=== PATIENT | male | born 1945 | race Caucasian/White ===

== ENCOUNTER → 2018-12-15 | Outpatient (REF) | payer MEDICARE ==
[~2018-12-15] MED LIST: ACTOPLUS M15 MG/500 OR; ADLT ASA LOW81 MG PO; ASA LOW DOSE81 MG OR; CRESTOR10 MG OR; FLUOXETINE20 MG PO; LISINOPRIL10 MG PO; LORTAB 7.57.5 MG PO; METFORMIN500 MG PO; SIMVASTATIN40 MG PO
== END | disposition home or self-care (01) ==
LOC: NUCMED 07:42
PROVIDERS: ATTEND Internal Medicine
DX: E04.1 Nontoxic single thyroid nodule (principal)
CPT/HCPCS: A9516

== ENCOUNTER 2022-01-21 19:01 | Observation (INO) | payer MEDICARE ==
[2022-01-21] VITALS (15 sets, daily range): BP systolic 123–158; BP diastolic 56–83
[~2022-01-21] VITALS: Ht 175.3 cm; Wt 87.0 kg
[2022-01-21 19:26] LABS: HEMATOCRIT 42.8 % (39.0-50.0); HEMOGLOBIN 14.2 g/dl (14.0-18.0); IMMATURE GRANULOCYTES 0.3 % (0.0-5.0); MEAN CELL VOLUME 96.6 fL CALC (80.0-100.0); MEAN CORPUSCULAR HGB 32.1 pG CALC (26.0-32.0); MEAN CORPUSCULAR HGB CONC 33.2 g/dL CAL (32.0-36.0); NEUT# 8.53 thou/uL (1.82-7.42); RED BLOOD COUNT 4.43 mill/uL (4.70-6.10); RED CELL DISTRI WIDTH 12.8 % (11.5-15.5)
[2022-01-21 19:38] LABS: ALBUMIN 3.9 g/dL (3.2-5.0); ALKALINE PHOSPHATASE 105 u/l (38-126); ANION GAP 13 (6-22 (CALC)); BUN 20 mg/dL (8-23); BUN/CREATININE RATIO 15 (12-20 (CALC)); CARBON DIOXIDE 27 mmol/l (22-30); CHLORIDE 106 mmol/l (95-108); CREATININE 1.4 mg/dL (0.7-1.3); GFR 49 ML/MIN (>=60 (CALC)); GFR FOR AFR.AMER. 59 ML/MIN (>=60 (CALC)); SGOT/AST 19 u/l (19-48); SODIUM 142 mmol/l (137-146); TOTAL PROTEIN 6.9 g/dL (6.3-8.2)
[2022-01-21 19:45] LABS: BILIRUBIN, TOTAL 0.2 mg/dL (0.0-1.4)
[2022-01-21 19:50] LABS: MYOGLOBIN 31 ng/mL (0 - 121)
[2022-01-21 22:33] LABS: URINE BILIRUBIN - DIPSTICK NEGATIVE (NEGATIVE); URINE BLOOD DIPSTICK TRACE-INTACT (NEGATIVE); URINE COLOR YELLOW; URINE GLUCOSE - DIPSTICK NEGATIVE (NEGATIVE); URINE KETONE NEGATIVE (NEGATIVE); URINE SPECIFIC GRAVITY 1.025; URINE UROBILINOGEN - DIPSTICK 0.2 E.U./dL (0.2)
[2022-01-21 22:38] LABS: URINE LEUK ESTERASE MODERATE (NEGATIVE); URINE NITRITE - DIPSTICK NEGATIVE (Negative)
[2022-01-21 22:39] LABS: URINE PROTEIN - DIPSTICK NEGATIVE (NEG-TRACE)
[2022-01-21 22:41] LABS: URINE WBC 50-100 WBC/hpf (0-5)
[2022-01-21 22:42] LABS: URINE EPITHELIAL CELLS MODERATE EPI/hpf (0-FEW)
[2022-01-21 22:43] LABS: URINE BACTERIA MODERATE hpf
[2022-01-22] VITALS (49 sets, daily range): BP systolic 69–152; BP diastolic 36–94
[2022-01-22 05:47] LABS: HEMOGLOBIN 13.4 g/dl (14.0-18.0); MEAN CELL VOLUME 97.2 fL CALC (80.0-100.0); MEAN CORPUSCULAR HGB 31.8 pG CALC (26.0-32.0); MEAN CORPUSCULAR HGB CONC 32.7 g/dL CAL (32.0-36.0); RED BLOOD COUNT 4.22 mill/uL (4.70-6.10); RED CELL DISTRI WIDTH 12.9 % (11.5-15.5)
[2022-01-22 06:04] LABS: ANION GAP 8 (6-22 (CALC)); BUN 18 mg/dL (8-23); BUN/CREATININE RATIO 20 (12-20 (CALC)); CARBON DIOXIDE 30 mmol/l (22-30); CHLORIDE 105 mmol/l (95-108); CREATININE 0.9 mg/dL (0.7-1.3); GFR > 60 ML/MIN (>=60 (CALC)); GFR FOR AFR.AMER. > 60 ML/MIN (>=60 (CALC)); MAGNESIUM 1.7 mg/dL (1.6-2.3); POTASSIUM 4.1 mmol/l (3.5-5.1); SODIUM 139 mmol/l (137-146)
[2022-01-23] VITALS (12 sets, daily range): BP systolic 122–158; BP diastolic 55–86
[2022-01-23 05:44] LABS: HEMATOCRIT 42.2 % (39.0-50.0); MEAN CELL VOLUME 95.3 fL CALC (80.0-100.0); MEAN CORPUSCULAR HGB 31.6 pG CALC (26.0-32.0); MEAN CORPUSCULAR HGB CONC 33.2 g/dL CAL (32.0-36.0); RED BLOOD COUNT 4.43 mill/uL (4.70-6.10); RED CELL DISTRI WIDTH 12.4 % (11.5-15.5)
[2022-01-23 05:55] LABS: ANION GAP 12 (6-22 (CALC)); BUN 19 mg/dL (8-23); BUN/CREATININE RATIO 26 (12-20 (CALC)); CARBON DIOXIDE 25 mmol/l (22-30); CHLORIDE 103 mmol/l (95-108); CREATININE 0.7 mg/dL (0.7-1.3); GFR > 60 ML/MIN (>=60 (CALC)); GFR FOR AFR.AMER. > 60 ML/MIN (>=60 (CALC)); MAGNESIUM 1.8 mg/dL (1.6-2.3); POTASSIUM 4.8 mmol/l (3.5-5.1); SODIUM 135 mmol/l (137-146)
[2022-01-23] MEDS ORDERED: ZITHROMAX250 MG PO (08:54)
[2022-01-23] MEDS ORDERED: PREDNISONE10 MG PO (08:54)
== END 2022-01-23 12:45 | disposition home or self-care (01) ==
LOC: ED 19:01 → ED-I 20:45 → ED 21:03 → ICU 21:04
PROVIDERS: Emergency Medicine; Internal Medicine; ADMIT Hospitalist; ATTEND Hospitalist
PROC: 5A09457 Assistance with Respiratory Ventilation, 24-96 Consecutive Hours, Continuous Positive Airway Pressure (ICD-10-PCS; principal; 2022-01-21)
DX: J44.1 Chronic obstructive pulmonary disease with (acute) exacerbation (principal); N39.0 Urinary tract infection, site not specified; I10 Essential (primary) hypertension; E11.9 Type 2 diabetes mellitus without complications; F17.210 Nicotine dependence, cigarettes, uncomplicated; Z95.0 Presence of cardiac pacemaker; Z79.84 Long term (current) use of oral hypoglycemic drugs; Z20.822 Contact with and (suspected) exposure to COVID-19

== ENCOUNTER 2022-02-04 15:22 | Observation (INO) | payer MEDICARE ==
[2022-02-04] VITALS (19 sets, daily range): BP systolic 97–215; BP diastolic 48–146
[~2022-02-04] VITALS: Ht 175.3 cm; Wt 90.0 kg
[~2022-02-04 15:22] MED LIST changes: +METFORMIN500 M2 PO; -METFORMIN500 MG PO; +PREDNISONE10 MG PO; +ZITHROMAX250 MG PO
[2022-02-04] MEDS ORDERED: CLOPIDOGREL75 MG PO (16:02)
[2022-02-04] MEDS ORDERED: BUPROPION HCL100 M2 PO (16:03)
[2022-02-04] MEDS ORDERED: DILTIAZEM30 MG PO (16:04)
[2022-02-04] MEDS ORDERED: ACETAMINOP160 MG/5 M PO (16:04)
[2022-02-04 16:13] LABS: HEMATOCRIT 42.7 % (39.0-50.0); HEMOGLOBIN 14.1 g/dl (14.0-18.0); IMMATURE GRANULOCYTES 0.4 % (0.0-5.0); MEAN CELL VOLUME 94.9 fL CALC (80.0-100.0); MEAN CORPUSCULAR HGB 31.3 pG CALC (26.0-32.0); NEUT# 9.56 thou/uL (1.82-7.42); RED BLOOD COUNT 4.5 mill/uL (4.70-6.10)
[2022-02-04] MEDS ORDERED: GABAPENTIN100 MG PO (16:17)
[2022-02-04] MEDS ORDERED: IPRATROPIU0.5 MG/3 M IN (16:22)
[2022-02-04 16:32] LABS: ALBUMIN 3.9 g/dL (3.2-5.0); ALKALINE PHOSPHATASE 78 u/l (38-126); BUN 21 mg/dL (8-23); BUN/CREATININE RATIO 21 (12-20 (CALC)); CARBON DIOXIDE 21 mmol/l (22-30); CHLORIDE 104 mmol/l (95-108); GFR > 60 ML/MIN (>=60 (CALC)); GFR FOR AFR.AMER. > 60 ML/MIN (>=60 (CALC)); SGOT/AST 19 u/l (19-48); SODIUM 134 mmol/l (137-146); TOTAL PROTEIN 6.6 g/dL (6.3-8.2)
[2022-02-04 16:33] LABS: ANION GAP 14 (6-22 (CALC)); BILIRUBIN, TOTAL 0.5 mg/dL (0.0-1.4); POTASSIUM 4.8 mmol/l (3.5-5.1)
[2022-02-04 16:41] LABS: GFR > 60 ML/MIN (>=60 (CALC)); GFR FOR AFR.AMER. > 60 ML/MIN (>=60 (CALC))
[2022-02-05] VITALS (35 sets, daily range): BP systolic 86–135; BP diastolic 32–93
[2022-02-05 05:41] LABS: HEMATOCRIT 41.8 % (39.0-50.0); HEMOGLOBIN 13.8 g/dl (14.0-18.0); MEAN CELL VOLUME 95.7 fL CALC (80.0-100.0); MEAN CORPUSCULAR HGB 31.6 pG CALC (26.0-32.0); RED BLOOD COUNT 4.37 mill/uL (4.70-6.10)
[2022-02-05 05:57] LABS: BUN 21 mg/dL (8-23); BUN/CREATININE RATIO 29 (12-20 (CALC)); CARBON DIOXIDE 21 mmol/l (22-30); CHLORIDE 101 mmol/l (95-108); CREATININE 0.7 mg/dL (0.7-1.3); GFR > 60 ML/MIN (>=60 (CALC)); GFR FOR AFR.AMER. > 60 ML/MIN (>=60 (CALC)); SODIUM 132 mmol/l (137-146)
[2022-02-05 05:58] LABS: ANION GAP 15 (6-22 (CALC))
[2022-02-05 06:00] LABS: POTASSIUM 5.2 mmol/l (3.5-5.1)
[2022-02-06] VITALS (11 sets, daily range): BP systolic 116–152; BP diastolic 49–132
[2022-02-06 05:26] LABS: HEMOGLOBIN 13.6 g/dl (14.0-18.0); MEAN CELL VOLUME 95.6 fL CALC (80.0-100.0); MEAN CORPUSCULAR HGB 31.7 pG CALC (26.0-32.0); MEAN CORPUSCULAR HGB CONC 33.2 g/dL CAL (32.0-36.0); RED BLOOD COUNT 4.29 mill/uL (4.70-6.10)
[2022-02-06 06:09] LABS: ANION GAP 15 (6-22 (CALC)); BUN 23 mg/dL (8-23); BUN/CREATININE RATIO 24 (12-20 (CALC)); CARBON DIOXIDE 20 mmol/l (22-30); CHLORIDE 103 mmol/l (95-108); CREATININE 0.9 mg/dL (0.7-1.3); GFR > 60 ML/MIN (>=60 (CALC)); GFR FOR AFR.AMER. > 60 ML/MIN (>=60 (CALC)); POTASSIUM 4.8 mmol/l (3.5-5.1); SODIUM 133 mmol/l (137-146)
[2022-02-06] MEDS ORDERED: ZITHROMAX250 MG PO (08:16)
[2022-02-06] MEDS ORDERED: PREDNISONE10 MG PO (08:16)
== END 2022-02-06 10:10 | disposition home or self-care (01) ==
LOC: ED 15:22 → ED-I 15:35 → ED 15:35 → ED-I 17:45 → ED 18:10 → ICU 18:20
PROVIDERS: Family Medicine; Internal Medicine; ADMIT Hospitalist; ATTEND Hospitalist
PROC: 5A09457 Assistance with Respiratory Ventilation, 24-96 Consecutive Hours, Continuous Positive Airway Pressure (ICD-10-PCS; principal; 2022-02-04)
DX: J44.1 Chronic obstructive pulmonary disease with (acute) exacerbation (principal); J96.21 Acute and chronic respiratory failure with hypoxia; I10 Essential (primary) hypertension; E11.9 Type 2 diabetes mellitus without complications; G47.30 Sleep apnea, unspecified; F17.210 Nicotine dependence, cigarettes, uncomplicated; Z95.0 Presence of cardiac pacemaker; Z99.81 Dependence on supplemental oxygen; Z79.84 Long term (current) use of oral hypoglycemic drugs; Z79.02 Long term (current) use of antithrombotics/antiplatelets; Z79.82 Long term (current) use of aspirin; Z20.822 Contact with and (suspected) exposure to COVID-19
CPT/HCPCS: J1650; Q9967

== ENCOUNTER 2022-07-13 16:25 | Emergency (ER) | payer MEDICARE ==
[~2022-07-13] VITALS: Ht 175.3 cm; Wt 95.0 kg
[2022-07-13] VITALS (16 sets, daily range): BP systolic 120–173; BP diastolic 69–93
[~2022-07-13 16:25] MED LIST changes: +ACETAMINOP160 MG/5 M PO; +BUPROPION HCL100 M2 PO; +CLOPIDOGREL75 MG PO; +DILTIAZEM30 MG PO; +GABAPENTIN100 MG PO; +IPRATROPIU0.5 MG/3 M IN
[2022-07-13 16:59] LABS: HEMATOCRIT 43.8 % (39.0-50.0); HEMOGLOBIN 14.6 g/dl (14.0-18.0); IMMATURE GRANULOCYTES 0.4 % (0.0-5.0); MEAN CELL VOLUME 91.1 fL CALC (80.0-100.0); MEAN CORPUSCULAR HGB 30.4 pG CALC (26.0-32.0); MEAN CORPUSCULAR HGB CONC 33.3 g/dL CAL (32.0-36.0); NEUT# 5.31 thou/uL (1.82-7.42); RED BLOOD COUNT 4.81 mill/uL (4.70-6.10)
[2022-07-13 17:19] LABS: PROTHROMBIN TIME 9.9 SECONDS (9.0-12.5)
[2022-07-13 17:20] LABS: ALBUMIN 4.3 g/dL (3.2-5.0); ALKALINE PHOSPHATASE 83 u/l (38-126); ANION GAP 16 (6-22 (CALC)); BILIRUBIN, TOTAL 0.2 mg/dL (0.0-1.4); BUN 22 mg/dL (8-23); BUN/CREATININE RATIO 19 (12-20 (CALC)); CARBON DIOXIDE 23 mmol/l (22-30); CHLORIDE 102 mmol/l (95-108); CREATININE 1.2 mg/dL (0.7-1.3); GFR FOR AFR.AMER. > 60 ML/MIN (>=60 (CALC)); GFR OTHER RACES 59 ML/MIN (>=60 (CALC)); POTASSIUM 4.5 mmol/l (3.5-5.1); SGOT/AST 28 u/l (19-48); SODIUM 137 mmol/l (137-146)
== END 2022-07-13 21:00 | disposition short-term general hospital (02) ==
LOC: ED 16:25
PROVIDERS: Emergency Medicine
DX: H34.9 Unspecified retinal vascular occlusion (principal); I10 Essential (primary) hypertension; E11.9 Type 2 diabetes mellitus without complications; Z86.73 Personal history of transient ischemic attack (TIA), and cerebral infarction without residual deficits; J44.9 Chronic obstructive pulmonary disease, unspecified; Z95.0 Presence of cardiac pacemaker; Z79.84 Long term (current) use of oral hypoglycemic drugs; F17.200 Nicotine dependence, unspecified, uncomplicated; H53.47 Heteronymous bilateral field defects; Z79.02 Long term (current) use of antithrombotics/antiplatelets; Z79.82 Long term (current) use of aspirin
CPT/HCPCS: Q3014; Q9967

== ENCOUNTER 2023-01-17 16:13 | Observation (INO) | payer MEDICARE ==
[2023-01-17] VITALS (10 sets, daily range): BP systolic 108–131; BP diastolic 64–97
[~2023-01-17] VITALS: Ht 175.3 cm; Wt 88.0 kg
[2023-01-17 17:20] LABS: BASO% 0.6 % (0-3); EOS% 2.2 % (0-8); HEMATOCRIT 40.6 % (39.0-50.0); IMMATURE GRANULOCYTES 0.3 % (0.0-5.0); LYMPH% 16.5 % (15-41); MEAN CELL VOLUME 92.7 fL CALC (80.0-100.0); MEAN CORPUSCULAR HGB 30.4 pG CALC (26.0-32.0); MEAN CORPUSCULAR HGB CONC 32.8 g/dL CAL (32.0-36.0); MONO% 10.2 % (2-13); NEUT# 8.08 thou/uL (1.82-7.42); NEUT% 70.2 % (42-76); RED BLOOD COUNT 4.38 mill/uL (4.70-6.10); RED CELL DISTRI WIDTH 13.1 % (11.5-15.5)
[2023-01-17 17:21] LABS: HEMOGLOBIN 13.3 g/dl (14.0-18.0)
[2023-01-17 17:32] LABS: ALKALINE PHOSPHATASE 101 u/l (38-126); ANION GAP 13 (6-22 (CALC)); BILIRUBIN, TOTAL 0.4 mg/dL (0.2-1.3); BUN 14 mg/dL (8-23); BUN/CREATININE RATIO 18 (12-20 (CALC)); CARBON DIOXIDE 27 mmol/l (22-30); CHLORIDE 103 mmol/l (95-108); CREATININE 0.8 mg/dL (0.7-1.3); GFR FOR AFR.AMER. > 60 ML/MIN (>=60 (CALC)); GFR OTHER RACES > 60 ML/MIN (>=60 (CALC)); POTASSIUM 4.4 mmol/l (3.5-5.1); SGOT/AST 21 u/l (19-48); SODIUM 139 mmol/l (137-146); TOTAL PROTEIN 6.4 g/dL (6.3-8.2)
--- NOTE | 2023-01-17 19:20 | NUR ---
PT IN ROOM LAYING IN THE BED HAVING SOME DIFFICULTY BREATHING. RE-POSITION PT ON STRETCHER AND ADMISITERED SOLEMEDROL. 2L OF O2 IS APPLIED. PROVIDER IS AWARE OF STATUS
--- NOTE | 2023-01-17 22:00 | NUR ---
PT RESTING IN ROOM COMFORTABLY. VITALS NOTED. PT DENIES PAIN SOB OR DISCOMFORT. BLANKET PROVIDED FOR COMFORT, FALL AND SAFETY PRECAUTIONS IN PLACE. CALL LIGHT WITHIN REACH.
--- NOTE | 2023-01-17 23:02 | NUR ---
Reassessment of patient completed. No distress noted. AZITHROMYCIN IS RUNNING. PT IS AWAITING BED ASSIGNMENT ON MED SURG
[2023-01-18] VITALS (8 sets, daily range): BP systolic 117–150; BP diastolic 57–72
--- NOTE | 2023-01-18 00:15 | NUR ---
REPORT CALLED TO RANULFO ON [facility]. PT IS GOING TO ROOM 279. PT IS ON TELE
--- NOTE | 2023-01-18 00:45 | NUR ---
PT TRANSPORTED TO FLOOR VIA WHEELCHAIR. PT IS ON 3L O2 VIA NASAL CANULA. NAD, VSS. PT REPORTS NO PAIN AT THIS TIME
--- NOTE | 2023-01-18 03:29 | NUR ---
Report received from Irma HUBBARD in the ER. Patient arrived to room 279 at 0111 via wheelchair. Able to stand and transfer from wheelchair to bed with standby assistance. Head to toe assessment completed. Skin intact. Able to answer questions appropriately. Denies pain or discomfort. Oriented to room and remote control, and call beltrán. Declined to wear not-skid foot wear. Prefered own socks. Educated on fall prevention and safety. Verbalizes understanding. RT contacted regarding use of CPAP. CPAP provided by RT but patient declined. Breathing was labored upon admission but respirations are more even and unlabored at this time. Patient currently resting quitly in bed with eyes closed. Call light within reach.
--- NOTE | 2023-01-18 07:04 | NUR ---
Patient resting quietly in bed. Safety measures in place. Call light within reach.
--- NOTE | 2023-01-18 08:00 | NUR ---
PATIENT STATED FEELING BETTER DURING ASSESSMENT. PATIENT IS ON 3L NC WHICH IS HIS HOME O2 LEVEL. PATIENT STATED THAT HIS BACK IS NO LONGER IN PAIN. THAT AT TIMES IT HURT WHEN AMBULATING. WILL CONTINUE TO MONITOR.
--- NOTE | 2023-01-18 12:00 | NUR ---
PATIENT STATED FEELING TIRED BUT NOT ABLE TO SLEEP. NURSE TURNED OFF THE LIGHTS AND CLOSE THE DOOR TO SEE IF THAT WOULD HELP PATIENT SLEEP. WILL CONTINUE TO MONITOR.
--- NOTE | 2023-01-18 15:40 | NUR ---
PATIENT REQUESTING A PRN MED TO HELP WITH SLEEPING. NURSE ASKED PROVIDER TO ADD A SLEEPING AIDE FOR PATIENT. SLEEPING AIDE WAS ADDED FOR TONIGHT. INFORMED PATIENT. WILL CONTINUE TO MONITOR.
--- NOTE | 2023-01-18 18:07 | NUR ---
PATIENT IS SEEN RESTING IN BED WILL LEAVE ALONE TO PREVENT DISTURBING SINCE PATIENT WANTS TO REST.
--- NOTE | 2023-01-18 19:58 | NUR ---
REPORT RECIEVED. PT A/OX3. RESPIRATIONS SHALLOW ON 3L NC, O2 SAT STABLE. EXPORTORY WHEEZING NOTED UPON ASCULATATION. HEART RHYTHM NORMAL, PACED PER ER MONITORING. BOWEL SOUNDS ACTIVE. #20G RAC PATENT. SCATTERED BRUISING NOTED THROUGHOUT BODY. PT DENIES OF ANY PAINS. GLUCOSE RESULT IN 333, COVERAGE ADMINISTERED PER ORDER. PT DENIES OF ANY NEEDS. ALL SAFTEY PRECAUTIONS ARE IN PLACE WITH CALL LIGHT IN REACH.
[2023-01-19] VITALS: BP 141/60
--- NOTE | 2023-01-19 00:46 | NUR ---
PT SLEEPING IN SEMI FOWLERS POSITION. RESPIRATIONS EVEN AND UNLABORED ON 3L NC. TELE MONITORING IN PLACE. PT REFUSED BIPAP MACHINE, USES AT HOME. #20G RAC NOTED. NO SIGNS OF ANY DISTRESS. ALL SAFTEY PRECAUTIONS ARE IN PLACE WITH CALL LIGHT IN REACH.
[2023-01-19 04:00] VITALS: BP 137/65
--- NOTE | 2023-01-19 04:16 | NUR ---
PT RESTING IN SEMI FOWLERS POSITION USING I.S. RESPIRATIONS EVEN AND UNLABORED ON 3L NC. TELE MONITORING IN PLACE. IV SITE NOTED. PT DENIES OF ANY NEEDS AT THIS TIME. ALL SAFTEY PRECAUTIONS ARE IN PLACE WITH CALL LIGHT IN REACH
[2023-01-19 04:44] VITALS: BP 137/65
[2023-01-19 05:36] LABS: BASO% 0.1 % (0-3); HEMOGLOBIN 12.1 g/dl (14.0-18.0); IMMATURE GRANULOCYTES 0.7 % (0.0-5.0); LYMPH% 4.7 % (15-41); MEAN CELL VOLUME 93.5 fL CALC (80.0-100.0); MEAN CORPUSCULAR HGB 31.4 pG CALC (26.0-32.0); MEAN CORPUSCULAR HGB CONC 33.6 g/dL CAL (32.0-36.0); MONO% 4.9 % (2-13); NEUT# 17.57 thou/uL (1.82-7.42); NEUT% 89.6 % (42-76); RED BLOOD COUNT 3.85 mill/uL (4.70-6.10); RED CELL DISTRI WIDTH 13.5 % (11.5-15.5)
[2023-01-19 05:55] LABS: ALBUMIN 3.6 g/dL (3.2-5.0); ALKALINE PHOSPHATASE 82 u/l (38-126); ANION GAP 13 (6-22 (CALC)); BUN 25 mg/dL (8-23); BUN/CREATININE RATIO 32 (12-20 (CALC)); CARBON DIOXIDE 23 mmol/l (22-30); CHLORIDE 104 mmol/l (95-108); CREATININE 0.8 mg/dL (0.7-1.3); GFR FOR AFR.AMER. > 60 ML/MIN (>=60 (CALC)); GFR OTHER RACES > 60 ML/MIN (>=60 (CALC)); POTASSIUM 5.1 mmol/l (3.5-5.1); SGOT/AST 18 u/l (19-48); SODIUM 135 mmol/l (137-146); TOTAL PROTEIN 5.7 g/dL (6.3-8.2)
[2023-01-19 06:22] LABS: BILIRUBIN, TOTAL 0.1 mg/dL (0.2-1.3)
[2023-01-19 06:37] VITALS: BP 129/57
--- NOTE | 2023-01-19 08:00 | NUR ---
PATIENT IS RESTING STATING THAT HE FEELS BETTER TODAY. PATIENT IS STILL ON 3L NC WHICH IS HIS HOME BASELINE. PATIENT IS ABLE TO AMBULATE WIHTOUT ANY ISSUES. WILL CONTINUE TO MONITOR.
[2023-01-19 10:19] VITALS: BP 138/55
[2023-01-19] MEDS ORDERED: PREDNISONE10 MG PO (14:13)
[2023-01-19] MEDS ORDERED: VIBRAMYCIN100 M2 PO (14:14)
--- NOTE | 2023-01-19 16:14 | NUR ---
Discharge instructions given. Patient verbalizes understanding of same. Discharged in stable condition via Wheelchair to Home with relative. All belongings sent with pt.
== END 2023-01-19 16:08 | disposition home health service (06) ==
LOC: ED 16:13 → ED-I 19:30 → ED 23:55 → MS2 23:56
PROVIDERS: Family Medicine; Nurse Practitioner Family; ADMIT Internal Medicine; ATTEND Internal Medicine
DX: J43.9 Emphysema, unspecified (principal); J18.9 Pneumonia, unspecified organism; J96.21 Acute and chronic respiratory failure with hypoxia; I10 Essential (primary) hypertension; E11.65 Type 2 diabetes mellitus with hyperglycemia; M47.814 Spondylosis without myelopathy or radiculopathy, thoracic region; G47.30 Sleep apnea, unspecified; Z79.84 Long term (current) use of oral hypoglycemic drugs; Z99.81 Dependence on supplemental oxygen; Z95.0 Presence of cardiac pacemaker; Z87.891 Personal history of nicotine dependence; Z20.822 Contact with and (suspected) exposure to COVID-19
CPT/HCPCS: Q9967

== ENCOUNTER 2023-10-25 17:25 | Emergency (ER) | payer MEDICARE ==
[2023-10-25] VITALS (12 sets, daily range): BP systolic 124–162; BP diastolic 58–102
[~2023-10-25] VITALS: Ht 175.3 cm; Wt 91.0 kg
[~2023-10-25 17:25] MED LIST changes: +VIBRAMYCIN100 M2 PO
[2023-10-25 18:30] LABS: BASO% 0.4 % (0-3); EOS% 2.4 % (0-8); HEMATOCRIT 45.6 % (39.0-50.0); HEMOGLOBIN 14.8 g/dl (14.0-18.0); IMMATURE GRANULOCYTES 0.3 % (0.0-5.0); LYMPH% 16.2 % (15-41); MEAN CELL VOLUME 95.2 fL CALC (80.0-100.0); MEAN CORPUSCULAR HGB 30.9 pG CALC (26.0-32.0); MEAN CORPUSCULAR HGB CONC 32.5 g/dL CAL (32.0-36.0); MONO% 12.3 % (2-13); NEUT# 8.31 thou/uL (1.82-7.42); NEUT% 68.4 % (42-76); RED BLOOD COUNT 4.79 mill/uL (4.70-6.10); RED CELL DISTRI WIDTH 13.5 % (11.5-15.5)
[2023-10-25 18:45] LABS: ALBUMIN 4.3 g/dL (3.2-5.0); ALKALINE PHOSPHATASE 80 u/l (38-126); ANION GAP 15 (6-22 (CALC)); BUN 23 mg/dL (8-23); BUN/CREATININE RATIO 21 (12-20 (CALC)); CARBON DIOXIDE 25 mmol/l (22-30); CHLORIDE 104 mmol/l (95-108); CREATININE 1.1 mg/dL (0.7-1.3); GFR FOR AFR.AMER. > 60 ML/MIN (>=60 (CALC)); GFR OTHER RACES > 60 ML/MIN (>=60 (CALC)); POTASSIUM 4.3 mmol/l (3.5-5.1); SODIUM 139 mmol/l (137-146)
[2023-10-25 18:46] LABS: BILIRUBIN, TOTAL 0.4 mg/dL (0.2-1.3); SGOT/AST 39 u/l (19-48); TOTAL PROTEIN 7.1 g/dL (6.3-8.2)
[2023-10-25] MEDS ORDERED: TRAMADOL HCL50 MG PO (20:32)
== END 2023-10-25 21:28 | disposition home or self-care (01) ==
LOC: ED 17:25
PROVIDERS: Family Medicine
DX: S20.211A Contusion of right front wall of thorax, initial encounter (principal); S50.01XA Contusion of right elbow, initial encounter; I10 Essential (primary) hypertension; E11.9 Type 2 diabetes mellitus without complications; J44.9 Chronic obstructive pulmonary disease, unspecified; W18.39XA Other fall on same level, initial encounter; Y93.H2 Activity, gardening and landscaping; Y92.007 Garden or yard of unspecified non-institutional (private) residence as the place of occurrence of the external cause; Z79.84 Long term (current) use of oral hypoglycemic drugs; Z95.0 Presence of cardiac pacemaker